=== PATIENT | male | born 1965 | race Caucasian/White ===

== ENCOUNTER 2019-02-10 08:49 | Emergency (ER) | payer OTHER ==
[~2019-02-10] VITALS: Ht 165.1 cm; Wt 102.1 kg
[2019-02-10 08:52] VITALS: Ht 165.1 cm; Wt 102.1 kg
[2019-02-10 09:32] VITALS: BP 158/71
== END 2019-02-10 09:32 | disposition home or self-care (01) ==
LOC: ED 08:49
DX: G51.0 Bell's palsy (principal); I10 Essential (primary) hypertension; E78.00 Pure hypercholesterolemia, unspecified